=== PATIENT | male | born 1965 | race American Indian/Alaskan Native ===

== ENCOUNTER 2020-04-09 12:35 | Outpatient (CLI) | payer MEDICAID ==
--- NOTE | 2020-04-09 14:21 | Cat Scan Report ---
CT ABDOMEN AND PELVIS WITHOUT CONTRAST HISTORY: Left adrenal mass, bilateral renal cysts COMPARISON: CTA chest 01/07/2018 TECHNIQUE: Axial CT images were obtained through the abdomen and pelvis without IV contrast. Sagittal and coronal reformatted images. All CT scans at this location are performed using CT dose reduction for ALARA by means of automated exposure control. FINDINGS: CT ABDOMEN: Lung Bases: Clear. Liver: No significant abnormality. Biliary: No significant abnormality. Spleen: No significant abnormality. Unenlarged. Pancreas: No significant abnormality. Adrenals: Normal left adrenal gland. Previously described left adrenal lesion is unchanged and size, contour and density. I believe this represents one lesion measuring 4.1 x 3.1 cm. This lesion contain s fat density highly suggestive of an adrenal myolipoma. Kidneys: Few small right renal cysts are unchanged with the largest measuring 1.6 cm. No complexity. The left kidney is unremarkable. Lymphatics: No lymphadenopathy. Vasculature: Mild diffuse aortic and iliac calcifications. No aneurysm. Bowel/Peritoneum: No significant abnormality. No free air. No free fluid. Normal appendix. CT PELVIS: : No significant abnormality. Osseous Structures: Moderate thoracolumbar spondylosis. Additional Findings: None IMPRESSION: No change in the left adrenal lesion since CTA chest dated 01/07/2018. 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 Stable small right renal cysts. Otherwise, unremarkable exam. Signer Name: Kit Montes Jr, MD Signed: 04/09/2020 2:17 PM Workstation Name: [id number]
== END 2020-04-09 12:36 | disposition home or self-care (01) ==
LOC: CT 12:35
DX: N28.1 Cyst of kidney, acquired (principal); N28.89 Other specified disorders of kidney and ureter
CPT/HCPCS: 74176